=== PATIENT | female | born 1970 | race American Indian/Alaskan Native ===

== ENCOUNTER 2017-06-30 07:58 | Outpatient (CLI) | payer OTHER ==
--- NOTE | 2017-06-30 14:41 | XRay Report ---
XRAY BILATERAL KNEE THREE VIEWS EACH: 06/30/17 07:58:00 CLINICAL: Bilateral knee pain. FINDINGS: Right: Mild narrowing of the medial joint space and moderate size medial osteophytes. The lateral joint space is normal. Small patellofemoral osteophytes. A small quadriceps insertion enthesophyte. No fracture or dislocation. No joint effusion. Normal soft tissues. Left: Mild narrowing of the medial joint space with small medial osteophytes. The lateral joint space is normal. Small patellofemoral osteophytes. No fracture or dislocation. No joint effusion.Normal soft tissues. IMPRESSION: Bilateral osteoarthritis with greater involvement of the medial knee joints and the patellofemoral joints. Right quadriceps insertion enthesopathy.
== END 2017-06-30 07:59 | disposition home or self-care (01) ==
LOC: SPVIMAG 07:58
PROVIDERS: ATTEND Orthopaedic Surgery Sports Medicine
DX: M17.0 Bilateral primary osteoarthritis of knee (principal); M76.891 Other specified enthesopathies of right lower limb, excluding foot